=== PATIENT | male | born 2000 | race Caucasian/White ===

== ENCOUNTER 2023-04-24 01:38 | Day surgery (SDC) | payer BC, OTHER, SELFPAY ==
[2023-04-15 14:34] VITALS: BMI 21.8
--- NOTE | 2023-04-15 14:44 | PC.NURSE ---
Report to the Outpatient Waiting Room, entrance under the green pavilion located off [facility], at 1000 on 04/24/23. Planned Procedure Time: 1200. Time changes happen often and if your time is changed the preop area will call you the afternoon before. - You and your visitor will be asked to self-screen and do not enter if you have any COVID symptoms. - A mask is optional within the hospital at this time. Patients may have clear liquids (water, carbonated beverages, clear teas, apple juice) until 3 hours prior to surgery with a maximum of 20 ounces. - No food from midnight until time of surgery Take the following medications with a SIP of water the morning of surgery: Instructed to take medications as needed, does not take except for Lorazepam. DO NOT STOP ANY OF YOUR OTHER PRESCRIPTION MEDICATIONS PRIOR TO SURGERY ?EXCEPT THE FOLLOWING Medications to discontinue per physician N/A Date to take last dose N/A Please no make-up, nail azeri, hairspray, perfume, deodorant, or body powder the day of surgery. No jewelry (including any body piercings) or valuables the day of surgery, leave them at home. Please take a shower or bath the night before, or the morning of, surgery with an antibacterial soap. Wear comfortable, loose fitting clothing. - Jewelry must be removed prior to entering the operating room. Rings and piercings that are not removed may be cut off. - The hospital will not accept responsibility for valuables. - Please leave all valuables, including medications, at home the day of surgery. If you are going home after surgery, a licensed otr refrigerated cdl truck driver must drive you home. - NO public transportation without another adult if you receive anesthesia. - We recommend that an adult stay with you for 24 hours following discharge. - We also recommend that you do not drive, make important decision, drink alcoholic beverages, or take any drugs that were not prescribed by your health care provider for at least 24 hours after your discharge time. Follow any additional instructions given to you from your surgeon. If you or anyone in your household have experienced Covid symptoms in the past week, please notify your surgeon or the nurse liaison at the phone number below for possible testing. Telephone instructions given to patient and asked if any additional questions and then verbalized understanding. Patient advised to call surgeon office or pre surgery nurse liaison [phone] if any additional questions.
[2023-04-24 10:25] VITALS: BP 143/104; PULSE 87; RESP 16; TEMP 36.8; O2SAT 100
--- NOTE | 2023-04-24 10:28 | WPDANESEPPF ---
Anes - Initial Pre Proc Eval Procedure: Operation Date: 04/24/23 12:00 Proposed Procedures p Excision of Right Upper Extremity Mass and Left Upper Extremity Mass - Raul Harris DO Date/Time: 04/24/23 10:28 Surgeon: Raul Harris DO Pre Op Diagnosis: 2cm Rt Arm Mass, 1cm Lt Arm Mass Patient Data Age: 23 Gender: M Height: 1.75 m Weight: 67.13 kg Last Vital Signs Temp 36.8 C 04/24/23 10:25 Pulse 87 04/24/23 10:25 Resp 16 04/24/23 10:25 BP 143/104 H 04/24/23 10:25 Pulse Ox 100 04/24/23 10:25 O2 Del Method Room Air 04/24/23 10:25 Allergies Allergy/AdvReac Type Severity Reaction Status Date / Time No Known Allergies Allergy Verified 04/15/23 14:30 Home Medications Medication Instructions Recorded Confirmed Type lorazepam 0.5 mg tablet 0.5 mg PO DAILY PRN Anxiety 02/16/23 04/15/23 History zaleplon 5 mg capsule 5 mg PO QHS PRN Sleep 02/16/23 04/15/23 History minocycline 100 mg capsule 100 mg PO DAILY 02/26/23 04/15/23 History bupropion HCl 150 mg 24 hr tablet, 150 mg PO DAILY 04/15/23 04/15/23 History extended release fluvoxamine 100 mg 200 mg PO DAILY PRN OCD 04/15/23 04/15/23 History capsule,extended release 24 hr quetiapine 50 mg tablet,extended 100 mg PO HS 04/15/23 04/15/23 History release 24 hr Patient hx anesthesia problems: none Family hx anesthesia problems: none Results Review: All pre-operative results and documents have been reviewed as part of the pre-operative evaluation. [facility] Past Medical History Medical History (Updated 03/03/23 @ 13:45 by Lupe España MA) Depression with anxiety Encounter for immunization Surgical History Surgical History H/O excision of mass excision multiple skin masses Family History Family History Other Cancer Diabetes mellitus Heart disease Hypertension Social History Social History Smoking status: Never smoker Second hand tobacco smoke exposure: No Alcohol intake: never Substance use: never Living arrangements: with family Occupation/Education: student Spiritual care concerns: No Anes - Eval Final PreProcedure Day of Procedure 04/24/23 10:28 Patient weight: normal Heart: regular rate and rhythm Lungs: clear to auscultation and normal air movement Airway: Mallampati scale class II Neurological: alert and oriented Last oral intake: >/= 8 hours ASA classification: II Emergent: no Anesthetic plan: proceed Anesthesia type and monitoring: general GIVS and standard monitoring Results Review: All pre-operative results and documents have been reviewed as part of the pre-operative evaluation. Informed Consent: The patient's anesthetic plan and its attendant risks and benefits were discussed with the patient/family/POA. Questions were solicited and answers provided to the satisfaction of the patient/family/POA.
[2023-04-24] MEDS: LACTATED RINGERS 1,000 ML 30 ML IV CONT (10:30)
--- NOTE | 2023-04-24 11:55 | PM.IMHP ---
H&P: HPI History of Present Illness Date/Time: 04/24/23 11:55 Chief Complaint: rt arm mass, left arm mass Narrative: 23 yo man presents for excision of right arm and left arm masses. He reports no changes since seen in office. Review of Systems Review of Systems: All systems reviewed & are unremarkable except as noted in HPI and below Constitutional: Constitutional: Denies chills, Denies fever(s), Denies headache(s) and Denies weight loss Eyes: Eyes: Denies change in vision ENT: Denies dizziness, Denies headache(s), Denies neck mass and Denies throat swelling Cardiovascular: Cardiovascular: Denies chest pain, Denies lightheadedness and Denies dyspnea Respiratory: Respiratory: Denies cough, Denies dyspnea and Denies wheezing Gastrointestinal: Gastrointestinal: Denies abdominal pain, Denies change in bowel habits, Denies nausea and Denies vomiting Genitourinary: Genitourinary: Denies hematuria and Denies dysuria Musculoskeletal: Musculoskeletal: Reports as per HPI Integumentary/Breasts: Skin/Breast: Reports as per HPI Neurologic: Denies dizziness and Denies headache(s) Allergic/Immunologic: Allergic/Immunologic: Denies throat swelling and Denies wheezing PMF Past Medical History Medical History (Updated 03/03/23 @ 13:45 by Lupe España MA) Depression with anxiety Encounter for immunization Surgical History Surgical History H/O excision of mass excision multiple skin masses Family History Family History Other Cancer Diabetes mellitus Heart disease Hypertension Social History Social History Smoking status: Never smoker Second hand tobacco smoke exposure: No Alcohol intake: never Substance use: never Living arrangements: with family Occupation/Education: student Spiritual care concerns: No Meds Home Medications and Allergies Home Medications Medication Instructions Recorded Confirmed Type lorazepam 0.5 mg tablet 0.5 mg PO DAILY PRN Anxiety 02/16/23 04/15/23 History zaleplon 5 mg capsule 5 mg PO QHS PRN Sleep 02/16/23 04/15/23 History minocycline 100 mg capsule 100 mg PO DAILY 02/26/23 04/15/23 History bupropion HCl 150 mg 24 hr tablet, 150 mg PO DAILY 04/15/23 04/15/23 History extended release fluvoxamine 100 mg 200 mg PO DAILY PRN OCD 04/15/23 04/15/23 History capsule,extended release 24 hr quetiapine 50 mg tablet,extended 100 mg PO HS 04/15/23 04/15/23 History release 24 hr Allergies Allergy/AdvReac Type Severity Reaction Status Date / Time No Known Allergies Allergy Verified 04/15/23 14:30 Vital Signs Vital Signs - 24 hr 04/24/23 10:25 Temperature 36.8 C Pulse Rate 87 Respiratory Rate 16 Blood Pressure 143/104 H Pulse Oximetry 100 Oxygen Delivery Room Air Exam Const: General: no acute distress and alert Orientation/consciousness: patient oriented x3 HENMT: Head: normocephalic and atraumatic Ears: hearing grossly normal bilaterally Face/Nose/Sinus: Normal nares present Mouth: Yes Normal oral and palatal mucosa present Eyes: Periorbital: periorbital findings normal Sclera: sclerae normal EOM: EOMs intact bilaterally Neck: Neck: normal visual inspection, no lymphadenopathy and trachea midline Chest: Chest palpation & inspection: normal inspection of the chest Resp: Effort & Inspection: normal respiratory effort Auscultation: clear to auscultation bilaterally Cardio: Jugular venous distension: no JVD Rate: regular rate Rhythm: regular rhythm Heart sounds: S1 normal heart sound present and S2 normal heart sound present Peripheral pulses: Peripheral pulses 2+ throughout GI: Inspection: normal to inspection GI Palp: Yes Soft to palpation, No Tenderness to palpation present (GI), No Guarding due to palpation present (GI) and No Rebound tenderness
--- NOTE | 2023-04-24 11:57 | WPDHPUPDATE1 ---
History and Physical Update Update Date/Time: 04/24/23 11:57 History and Physical has been reviewed, including an updated exam of the patient. There are NO changes in the patient's condition. Risks, benefits, and alternatives have been discussed and questions answered. Patient agrees to proceed with procedure.
[2023-04-24] MEDS: ceFAZolin 2 GM/D5W 50 ML 2 GM/50 ML BAG IVPB (12:34)
[2023-04-24] MEDS: LIDO 1%/EPINEPHRINE 1:100,000 20 ML VIAL 15 ML INFILTRATE (12:58)
--- NOTE | 2023-04-24 13:11 | W.PM.PROC2 ---
Procedure Note - Detailed Date of Procedure 04/24/23 Pre-op Diagnosis 2cm Rt Arm Mass, 1cm Lt Arm Mass Post-op Diagnosis Same Procedure Performed Excision 2 cm right arm mass and 1 cm left arm mass Surgeon Raul Harris, DO Anesthesia MAC and Local (1% lidocaine with epinephrine) Indications This is a 23-year-old man who presented with painful masses on his upper extremities. He has a history of excision of lipomas in the past. He has a small lump over each deltoid region which is causing him some discomfort. These were somewhat difficult to palpate in preop, but I did nelson the areas with the patient to confirm area that he could feel. Discussions were made with the patient about treatment options and decision was made to proceed with excision of 2 cm right arm mass and 1 cm left arm mass. Findings Both are masses were excised. They both appeared to have fatty consistency likely representing lipoma or just fatty subcutaneous tissue. Both areas were completely excised and sent to the lab for pathology. Description of Procedure Procedure as well as risks, benefits, and alternatives were discussed with the patient. Written consent was obtained and placed in chart prior to procedure. Patient was brought back to surgical suite. He was placed supine on operating table. Time-out was done to confirm patient and procedure. IV sedation was then administered by the anesthesia department. His bilateral upper extremities were then prepped and draped in sterile fashion using chlorhexidine prep. 1% lidocaine with epinephrine was infiltrated locally over each area. A 2 cm incision was made over the right upper extremity mass using a 15 blade scalpel. Electrocautery was used for hemostasis and for dissection of the surrounding subcutaneous attachments. The mass was completely excised and sent to the lab for pathology. The wound bed was then inspected and hemostasis appeared adequate. The skin edges were then reapproximated using 4-0 Monocryl running subcuticular suture. Exofin glue was then applied on top. Another 2 cm incision was then made over the left upper extremity mass using a 15 blade scalpel. Electrocautery was used for hemostasis and for dissection of their surrounding subcutaneous attachments. The mass was completely excised and sent to the lab for pathology. The wound bed was then inspected and hemostasis appeared adequate. The skin edges were reapproximated using 4-0 Monocryl subcuticular suture. Exofin glue was then applied on top. The patient was then awakened from anesthesia and transferred to recovery. Estimated Blood Loss 5 Pathology Yes (Right upper extremity mass and left upper extremity mass) Complications No immediate complications Condition Stable Disposition Same day [facility] Billing Surgery - Charge Forward: Surgery Billing
[2023-04-24 13:20] VITALS: BP 136/73; PULSE 78; RESP 14; O2SAT 100
[2023-04-24 13:30] VITALS: BP 136/73; PULSE 83; RESP 16; O2SAT 100
[2023-04-24 13:52] VITALS: BP 132/76; PULSE 86; RESP 14; O2SAT 100
[2023-04-24 14:14] VITALS: BP 118/60; PULSE 82; RESP 16
== END 2023-04-24 14:22 | disposition home or self-care (01) ==
PROVIDERS: PCP Family Medicine; Visit Provider Surgery
PROC: (CPT 24075; principal; 2023-04-24 12:00)
DX: R22.33 Localized swelling, mass and lump, upper limb, bilateral (principal); F41.8 Other specified anxiety disorders
CPT/HCPCS: 24075; 88304; A9270; J0690; J1100; J2250; J2405; J2704; J3010; J7120